=== PATIENT | male | born 1960 | race Caucasian/White ===

== ENCOUNTER → 2020-01-29 16:27 | Outpatient (CLI) | payer BC, OTHER, SELFPAY ==
--- NOTE | ~2020-01-29 | MR_ITS ---
EXAMINATION: MR knee RT wo con DATE: 01/29/2020 17:12 INDICATION: Other tear of medial meniscus. Generalized right knee pain. TECHNIQUE: Magnetic resonance imaging (MRI) of the right knee was performed without intravenous contr ast. Sequences included axial PD-weighted FS FSE, coronal PD-weighted FSE and PD-weighted FS FSE, sag ittal PD-weighted FSE, and sagittal T2-weighted FS FSE. COMPARISON: Right knee radiographs 01/12/2020 FINDINGS: Medial compartment: There is a complex tear involving body and posterior horn of medial meniscus. There is shallow partia l-thickness cartilage loss of tibial condyle medially with mild subchondral edema-like marrow signal intensity. There is cartilage surface irregularity of femoral condyle. Tiny osteophytes are noted. Lateral compartment: Lateral meniscus is normal. There is shallow partial-thickness cartilage loss of tibial condyle poste riorly. Femoral cartilage is normal. There are tiny marginal osteophytes. Patellofemoral compartment: There is full-thickness cartilage loss of patellar lateral facet with mild subchondral edema-like mar row signal intensity. There is cartilage surface irregularity of patellar medial facet. There is full -thickness cartilage loss of lateral trochlea with mild subchondral edema-like marrow signal intensit y. Marginal osteophytes are noted. Ligaments and tendons: The anterior and posterior cruciate ligaments are normal. Medial collateral ligament and lateral manan ateral ligament complex are intact. There is mild patellar tendinopathy. Fluid: There is a small knee joint effusion. There is a small Hernandez's cyst. IMPRESSION: 1. Severe chondrosis of patellofemoral compartment and mild chondrosis of medial and lateral compartm ents. 2. Complex tear of medial meniscus. 3. Small knee joint effusion. 4. Small Hernandez's cyst. Reviewed, dictated and finalized at location A. IMPRESSION: 1. Severe chondrosis of patellofemoral compartment and mild chondrosis of media l and lateral compartments. 2. Complex tear of medial meniscus. 3. Small knee joint effusion. 4. Small Hernandez's cyst.
== END ==
PROVIDERS: PCP Internal Medicine; Visit Provider Orthopaedic Surgery
DX: S83.241A Other tear of medial meniscus, current injury, right knee, initial encounter (principal); X58.XXXA Exposure to other specified factors, initial encounter; M25.461 Effusion, right knee; M71.21 Synovial cyst of popliteal space [Baker], right knee; S83.231A Complex tear of medial meniscus, current injury, right knee, initial encounter
CPT/HCPCS: 73721

== ENCOUNTER 2020-02-25 11:42 | Outpatient (CLI) | payer BC, OTHER, SELFPAY ==
--- NOTE | 2020-02-25 11:44 | ECG_ITS ---
Measurements Intervals [place] Rate: 52 P: 243 [place]: 91 QRS: 23 QRSD: 103 T: 37 QT: 402 QTc: 375 Interpretive Statements SINUS BRADYCARDIA BASELINE ARTIFACT- I, II, AVR, AVL, AVF BORDERLINE ECG Electronically Signed On 02-25-2020 12:14:29 DEVELOPMENT SYSTEM EFFICIENCY MANAGER by Umair Zapata D.O.
[2020-02-25 12:15] LABS: Anion Gap 7 mmol/L (8-16); Blood Urea Nitrogen 18 mg/dL (9-20); Calcium 9.4 mg/dL (8.4-10.2); Carbon Dioxide 31 mmol/L (22-30); Chloride 101 mmol/L (98-107); Estimated Glomerular Filt Rate > 60; Glucose 101 mg/dL (75-110); Potassium 4.2 mmol/L (3.4-5.0); Sodium 139 mmol/L (137-145)
== END 2020-02-25 11:43 | disposition home or self-care (01) ==
PROVIDERS: Anesthesiology; PCP Internal Medicine; Visit Provider Orthopaedic Surgery
DX: Z01.818 Encounter for other preprocedural examination (principal); E11.9 Type 2 diabetes mellitus without complications; E78.00 Pure hypercholesterolemia, unspecified
CPT/HCPCS: 36415; 80048; 93005

== ENCOUNTER 2020-03-06 00:53 | Outpatient (CLI) | payer BC, OTHER, SELFPAY ==
[2020-03-06 19:14] LABS: SARS-CoV-2 RNA PCR Negative
== END 2020-03-06 00:54 | disposition home or self-care (01) ==
LOC: ANHCOVIDDT 00:53
PROVIDERS: PCP Internal Medicine; Visit Provider Orthopaedic Surgery
DX: Z01.812 Encounter for preprocedural laboratory examination (principal); Z20.828 Contact with and (suspected) exposure to other viral communicable diseases
CPT/HCPCS: 87635; C9803; U0003

== ENCOUNTER 2020-03-09 01:11 | Day surgery (SDC) | payer BC, OTHER, SELFPAY ==
[2020-02-24 16:07] VITALS: BMI 28.8
--- NOTE | 2020-03-08 12:21 | WPDANESEPPF ---
Anes - Initial Pre Proc Eval Procedure: Operation Date: 03/09/20 11:00 Proposed Procedures p Arthroscopic Partial Medial Meniscectomy Of Right Knee - Con Khan MD Date/Time: 03/08/20 12:21 Surgeon: Con Khan MD Pre Op Diagnosis: Right Knee Medial Meniscus Tear Patient Data Age: 59 Gender: M Height: 1.88 m Weight: 102 kg Allergies Allergy/AdvReac Type Severity Reaction Status Date / Time No Known Allergies Allergy Verified 02/04/20 11:09 Home Medications Medication Instructions Recorded Confirmed Type metformin 500 mg tablet 500 mg PO DAILY 01/12/20 02/24/20 History simvastatin 40 mg tablet 40 mg PO DAILY 01/12/20 02/24/20 History Patient hx anesthesia problems: none Family hx anesthesia problems: none [facility] Past Medical History Medical History (Updated 03/08/20 @ 12:22 by Sukhjinder Beyer MD) Diabetes Hypercholesterolemia Hypertension Overweight (BMI 25.0-29.9) Surgical History Surgical History History of left knee surgery (~1986) ORIF History of total left knee replacement (~03/28/16) Presence of left artificial knee joint (~03/28/16) Social History Social History Smoking status: Never smoker Alcohol intake: current Substance use: never Living arrangements: with family Gender identity (if verbalized by the patient): Male Sexual Orientation (if Verbalized by the Patient): Straight or Heterosexual Spiritual care concerns: No Anes - Eval Final PreProcedure Day of Procedure 03/08/20 12:21 Patient weight: overweight Heart: regular rate and rhythm Lungs: clear to auscultation and normal air movement Airway: Mallampati scale class II Neurological: alert and oriented Last oral intake: >/= 8 hours ASA classification: III Emergent: no Anesthetic plan: proceed Anesthesia type and monitoring: general LMA Informed Consent: The patient's anesthetic plan and its attendant risks and benefits were discussed with the patient/family/POA. Questions were solicited and answers provided to the satisfaction of the patient/family/POA.
[2020-03-09 08:55] VITALS: BP 137/82; PULSE 63; RESP 20; TEMP 36.4; O2SAT 98
[2020-03-09] MEDS: LACTATED RINGERS 1,000 ML 30 ML IV CONT (09:30)
[2020-03-09] MEDS: KETOROLAC 15 MG/ML VIAL (*BKC) IV PUSH (09:35)
[2020-03-09 09:39] LABS: Glucose Point of Care 116 (65-105)
--- NOTE | 2020-03-09 10:26 | WPDHPUPDATE1 ---
History and Physical Update Update Date/Time: 03/09/20 10:26 History and Physical has been reviewed, including an updated exam of the patient. There are NO changes in the patient's condition. Risks, benefits, and alternatives have been discussed and questions answered. Patient agrees to proceed with procedure.
--- NOTE | 2020-03-09 11:29 | P.HP_ITS ---
History of Present Illness History of Present Illness Consent: Risks, benefits, and alternatives have been discussed and questions answered. Patient agrees to proceed with procedure. Chief complaint: Right Knee Medial Meniscus Tear Narrative: Ankit Alvarez is a 59 year old male complains of persistent medial joint side pain. Worse with activities. Worse with twisting. Feels an intermittent catching sensation. Review of Systems Constitutional: Constitutional: Denies fever(s) ENT: Denies sore throat Cardiovascular: Cardiovascular: Denies dyspnea Respiratory: Respiratory: Denies cough and Denies dyspnea Musculoskeletal: Musculoskeletal: Reports as per [facility] Past Medical History Medical History Diabetes Hypercholesterolemia Hypertension Overweight (BMI 25.0-29.9) Surgical History Surgical History History of left knee surgery (~1986) ORIF History of total left knee replacement (~03/28/16) Presence of left artificial knee joint (~03/28/16) Social History Social History Smoking status: Never smoker Alcohol intake: current Substance use: never Living arrangements: with family Gender identity (if verbalized by the patient): Male Sexual Orientation (if Verbalized by the Patient): Straight or Heterosexual Spiritual care concerns: No Meds Home Medications and Allergies Home Medications Medication Instructions Recorded Confirmed Type metformin 500 mg tablet 500 mg PO DAILY 01/12/20 03/09/20 History simvastatin 40 mg tablet 40 mg PO DAILY 01/12/20 03/09/20 History Allergies Allergy/AdvReac Type Severity Reaction Status Date / Time No Known Allergies Allergy Verified 03/09/20 11:26 Exam Const: General: healthy appearing and no acute distress; No confusion Orientation/consciousness: patient oriented x3 and No confusion Limitations: no limitations Skin: General skin exam: no rashes or lesions noted Trauma: no lacerations or abrasions Neuro: General: patient oriented x3 and No confusion Speech: normal speech Sensory Exam: normal sensation Extrem: General: no clubbing, cyanosis or edema and no pedal edema Musculoskeletal: Musculoskeletal details: Exquisite tenderness at the medial joint line. No significant deformity. Pain with hyperflexion. Positive Shireen's test. Neurologic status intact. Assessment and Plan Assessment and plan (1) Acute medial meniscus tear of right knee: Qualifiers: Encounter type: initial encounter Qualified Code(s): S83.241A - Other tear of medial meniscus, current injury, right knee, initial encounter Code(s): S83.241A - Other tear of medial meniscus, current injury, right knee, initial encounter Status: Acute Assessment and Plan: Symptomatic degenerative medial meniscus tear. Did not respond to conservative treatment including injections and therapy. Will benefit from arthroscopic partial medial meniscectomy. We discussed the risks, benefits, and alternatives to surgery.
[2020-03-09] MEDS: ACETAMINOPHEN 500 MG TABLET 1000 MG PO (11:31)
[2020-03-09] MEDS: ceFAZolin 2 GM/D5W 50 ML 2 GM/50 ML BAG IVPB (11:43)
[2020-03-09 12:37] VITALS: BP 130/86; PULSE 67; RESP 8; TEMP 36.2; O2SAT 100
--- NOTE | 2020-03-09 12:46 | P.OP_ITS ---
Procedure Note - Detailed Date of procedure: 03/09/20 Pre-op diagnosis: Right Knee Medial Meniscus Tear Medial meniscus tear. Post-op diagnosis: same Procedure performed: Arthroscopic partial medial meniscectomy, right knee. Anesthesia: DELFINA Surgeon: Con Khan MD [employer]: Laura Johnston PA-C Estimated blood loss (mL): 5 Complications: None Condition: stable Disposition: same day Findings: Brief History: The patient complained of knee pain, swelling and mechanical symptoms despite conservative treatment. MRI confirmed the presence of a meniscus tear. Operative Findings: Extensive medial meniscus tear extending medially in back to the posterior horn. Subtotal meniscectomy required. The radiofrequency probe was used to complete the debridement and taper the remaining edge of the anteromedial meniscus. The patellofemoral joint showed severe arthritis with large areas of grade 4 chondromalacia on both the femur and lateral trochlea. A rough edge on the trochlea was gently treated with chondroplasty. The lateral compartment showed moderate softening and partial thicknes fissures of the tibia but no meniscus tears. The ACL was intact. The medial compartment showed minimal grade 1 chondromalacia. Procedure Details: The patient was identified and the surgical site confirmed and signed in the preoperative holding area. Antibiotics were started per protocol. She was brought to the operative room and transferred to the OR table. A general anesthetic was administered. Supine position with the operative lower extremity position in the leg simpson after placement of a well padded tourniquet. The leg support was lowered and the contralateral limb was supported with a soft bolster. The knee was prepped and draped in the usual sterile fashion. A time-out was performed. The portal sites were marked and infiltrated with 0.25% Marcaine 20 mL. The limb was exsanguinated and the tourniquet inflated to 300 mL Hg. Standard inferolateral and inferomedial portals were established. Inflow was obtained with the saline pump. The camera was introduced. Diagnostic inspection of the joint was accomplished. The meniscus was debrided with the arthroscopic shaver and punches until stable. The arthroscopic instruments were removed. The tourniquet released and wounds closed with subcutaneous 3-0 Monocryl absorbable suture. Steri strips and a sterile dressing were applied. A light elastic wrap was placed. The patient was extubated and brought to the recovery room in stable condition.
[2020-03-09 12:50] VITALS: BP 133/87; PULSE 60; RESP 15; O2SAT 100
[2020-03-09 12:53] LABS: Glucose Point of Care 114 (65-105)
[2020-03-09 13:05] VITALS: BP 130/85; PULSE 65; RESP 15; O2SAT 100
[2020-03-09 13:16] VITALS: BP 137/82; PULSE 68; RESP 16
[2020-03-09] MEDS: oxyCODONE HCL (*CRX) 5 MG TAB IR PO (13:41)
[2020-03-09 13:45] VITALS: BP 125/85; PULSE 60; RESP 16
--- NOTE | 2020-03-09 13:49 | SUR.PHASEI ---
NEURO CHECKS WNL IN PACU; GOOD STRONG RIGHT PEDAL PULSE; NL SENSATION; ABLE TO WIGGLE RIGHT TOES.
== END 2020-03-09 14:03 | disposition home or self-care (01) ==
PROVIDERS: PCP Internal Medicine; Visit Provider Orthopaedic Surgery
PROC: (CPT 29870; principal; 2020-03-09 11:00)
DX: M23.321 Other meniscus derangements, posterior horn of medial meniscus, right knee (principal); I10 Essential (primary) hypertension; E11.9 Type 2 diabetes mellitus without complications; E78.00 Pure hypercholesterolemia, unspecified; Z79.84 Long term (current) use of oral hypoglycemic drugs
CPT/HCPCS: 29881; A9270; J0690; J1100; J1885; J2250; J2370; J2405; J2704; J3010; J7120

== ENCOUNTER 2021-04-20 12:38 | Outpatient (CLI) | payer BC, SELFPAY ==
--- NOTE | ~2021-04-20 | MR_ITS ---
EXAMINATION: MR thoracic spine wo con EXAM DATE: 04/20/2021 13:50 INDICATION: Back pain, thoracic back pain, thoracic.. TECHNIQUE: Multi-sequential, multiplanar MR images of the thoracic spine were obtained without contra st. Sagittal T1, T2, T2 fat saturation, axial T2 weighted images reviewed. Comparison is made to joanne or examination from MR lumbar spine same date. FINDINGS: Acute to subacute T12 burst fracture with mild loss of its height posteriorly, mild to mode rate loss anteriorly. No retropulsion. No other thoracic bone marrow signal abnormalities. There is m ild to moderate diffuse thoracic disc disease with small disc bulges and protrusions not causing sign ificant central canal or neural foraminal stenosis. The spinal cord signal intensity and intrinsic mo rphology is normal. Mild to moderate thoracic facet arthropathy. Paraspinal soft tissue is unremarkab le. Incompletely imaged left renal lesion consistent with cyst measuring about 4 cm. IMPRESSION: 1. Acute or subacute T12 burst fracture without retropulsion. 2. Mild to moderate thoracic spondylosis. Reviewed, dictated and finalized at location G. ICAL TESTER
--- NOTE | ~2021-04-20 | MR_ITS ---
EXAMINATION: MR lumbar spine wo con DATE: 04/20/2021 13:50 INDICATION: Lumbar radiculopathy. Mid to low back pain. TECHNIQUE: Magnetic resonance imaging (MRI) of the lumbar spine was performed without intravenous con trast. Sequences included sagittal T2-weighted FSE, sagittal T2-weighted FS FSE, sagittal T1-weighted FSE, and axial T2-weighted FSE. COMPARISON: None FINDINGS: There is 8 degrees levocurvature of lumbar spine. There is a burst fracture of T12 with 1/5 loss of height and bone marrow edema without retropulsion of bone. There are Schmorl's nodes at most levels. There is a chronic compression fracture of superior endplate of L4 with 2/5 loss of height. There is moderately decreased disc at L5-S1. The distal spinal cord signal intensity is normal. The c onus medullaris is at L1. There is a 3.9 cm cyst in left kidney. The following disc levels are specif ically discussed: L1-L2: There is a central protrusion. There is mild bilateral facet joint osteoarthritis. There is no neural foraminal stenosis. There is mild central canal stenosis. L2-L3: The disc is bulging. There is moderate bilateral facet joint osteoarthritis. There is mild iggy ateral neural foraminal stenosis. There is mild central canal stenosis. L3-L4: The disc is bulging. There is mild bilateral facet joint osteoarthritis. There is mild bilater al neural foraminal stenosis. There is mild central canal stenosis. L4-L5: The disc is bulging. There is severe bilateral facet joint osteoarthritis. There is moderate b ilateral neural foraminal stenosis. There is mild central canal stenosis. L5-S1: The disc is bulging and has an annular fissure. There is mild bilateral facet joint osteoarthr itis. There is moderate bilateral neural foraminal stenosis. There is mild central canal stenosis. IMPRESSION: 1. Acute versus subacute burst fracture of T12. 2. Moderate lumbar spondylosis. Reviewed, dictated and finalized at location A. OR NET DEVELOPER
== END 2021-04-20 12:39 ==
PROVIDERS: PCP Physician Assistant Medical; Visit Provider Nurse Practitioner Adult Health
DX: M54.6 Pain in thoracic spine (principal); S22.081A Stable burst fracture of T11-T12 vertebra, initial encounter for closed fracture; M47.814 Spondylosis without myelopathy or radiculopathy, thoracic region; M47.26 Other spondylosis with radiculopathy, lumbar region
CPT/HCPCS: 72146; 72148